=== PATIENT | male | born 1950 | race Caucasian/White ===

== ENCOUNTER → 2018-12-18 | Outpatient (CLI) | payer OTHER, MEDICARE ==
[~2018-12-18] MED LIST: LIDOCAINE 1% 5 ML SDV ONE
[2018-12-18 09:59] LABS: INR 1.01 (0.83-1.16); PROTIME(PATIENT) 12.9 SEC (12.0-15.0)
== END ==
LOC: FIMAGING 08:38
PROVIDERS: ATTEND Psychiatry & Neurology Neurology
PROC: 009U3ZX Drainage of Spinal Canal, Percutaneous Approach, Diagnostic (ICD-10-PCS; principal; 2018-12-18)
DX: G60.3 Idiopathic progressive neuropathy (principal)